=== PATIENT | male | born 1965 | race Asian ===

== ENCOUNTER 2016-04-16 10:08 | Emergency (ER) | payer MEDICAID ==
[~2016-04-16] VITALS: Ht 177.8 cm; Wt 81.2 kg
[2016-04-16 10:54] VITALS: BP 108/62
== END 2016-04-16 11:35 | disposition home or self-care (01) ==
LOC: ER 10:08
DX: S20.30 Unspecified superficial injuries of front wall of thorax (principal); F17.210 Nicotine dependence, cigarettes, uncomplicated; F12.10 Cannabis abuse, uncomplicated; Z48.02 Encounter for removal of sutures

== ENCOUNTER 2016-05-02 12:39 | Emergency (ER) | payer MEDICAID ==
[~2016-05-02] VITALS: Ht 170.2 cm; Wt 68.0 kg
[2016-05-02 12:41] VITALS: BP 132/78
== END 2016-05-02 19:30 | disposition home or self-care (01) ==
LOC: EDBD 12:39 → ER 12:53
DX: R07.89 Other chest pain (principal); F17.210 Nicotine dependence, cigarettes, uncomplicated; F12.10 Cannabis abuse, uncomplicated

== ENCOUNTER 2017-04-06 13:04 | Emergency (ER) | payer MEDICAID ==
[~2017-04-06] VITALS: Ht 175.3 cm; Wt 79.4 kg
[2017-04-06 14:46] VITALS: BP 126/91
[2017-04-06 15:31] LABS: Basophils # (auto) 0 uL; Eosinophils # (auto) 0.1 uL; Lymphocytes # (auto) 1.6 uL; Mean Corpuscular Hemoglobin 34.5 pg (28.0-32.0); Monocytes # (auto) 0.4 uL; Nucleated Red Blood Cells % 0.2 %
[2017-04-06 15:33] LABS: Basophils % (auto) 0.4 % (0.0-2.0); Eosinophils % (auto) 1.6 % (0.0-7.0); Hematocrit 46.2 % (41.0-53.0); Hemoglobin 15.8 g/dL (13.5-17.5); Lymphocytes % (auto) 23.5 % (10.0-50.0); Mean Corpuscular Hgb Conc. 34.2 g/dL (32.0-36.0); Mean Corpuscular Volume 100.8 fL (80.0-100.0); Monocytes % (auto) 6.2 % (0.0-12.0); Neutrophils # (auto) 4.5 uL; Neutrophils % (auto) 68.3 % (37.0-80.0); Platelet Count (auto) 277 10^3/uL (140-450); Red Blood Cells 4.58 10^6/uL (4.5-5.90); Red Cell Distribution Width 13.7 % (11.8-14.3); White Blood Cell 6.6 10^3/uL (4.4-10.8)
== END 2017-04-06 15:56 | disposition home or self-care (01) ==
LOC: ER 13:04
DX: R04.0 Epistaxis (principal); K64.9 Unspecified hemorrhoids; F17.210 Nicotine dependence, cigarettes, uncomplicated
CPT/HCPCS: 36415; 85025

== ENCOUNTER 2021-04-10 17:29 | Emergency (ER) | payer MEDICAID ==
[~2021-04-10] VITALS: Ht 177.8 cm; Wt 77.1 kg
[2021-04-11 00:54] VITALS: BP 115/81
[2021-04-11] MEDS ORDERED: TETANUS-DIPTH-ACEL PERTUSSIS 0.5ML SYR Tdap IM ONE (02:00)
[2021-04-11] MEDS ORDERED: cefTRIAXone SOD 1,000 MG VL IM ONE (02:00)
== END 2021-04-11 02:23 | disposition home or self-care (01) ==
LOC: ER 17:29
DX: L03.211 Cellulitis of face (principal); F15.10 Other stimulant abuse, uncomplicated; E78.5 Hyperlipidemia, unspecified; F17.210 Nicotine dependence, cigarettes, uncomplicated
CPT/HCPCS: 90471; 90715; 96372; 99284; J0696

== ENCOUNTER 2021-08-03 18:12 | Inpatient (IN) | payer MEDICAID ==
[~2021-08-03] VITALS: Ht 177.8 cm; Wt 67.9 kg
[2021-08-03 21:20] LABS: Eosinophils # (auto) 0 10 ^3/uL (0-0.8); Hemoglobin 19.5 g/dL (13.5-17.5)
[2021-08-03 21:22] LABS: Basophils # (auto) 0.1 10 ^3/uL (0-0.2); Basophils % (auto) 0.2 % (0.0-2.0); Hematocrit 56.9 % (41.0-53.0); Lymphocytes # (auto) 1.7 10 ^3/uL (0.4-5.4); Lymphocytes % (auto) 7.4 % (10.0-50.0); Mean Corpuscular Hgb Conc. 34.2 g/dL (32.0-36.0); Mean Corpuscular Volume 99.3 fL (80.0-100.0); Monocytes % (auto) 4.4 % (0.0-12.0); Neutrophils # (auto) 20.5 10 ^3/uL (1.6-8.6); Nucleated Red Blood Cells % 0.9 %; Red Blood Cells 5.73 10^6/uL (4.5-5.90); Red Cell Distribution Width 14.3 % (11.8-14.3); White Blood Cell 23.3 10^3/uL (4.4-10.8)
[2021-08-03 21:34] LABS: Albumin 5.6 g/dL (3.4-5.0); Potassium 5.1 mmol/L (3.5-5.1)
[2021-08-03 21:37] LABS: BUN/Creatinine Ratio 7.7; Bilirubin, Total 0.6 mg/dL (0.2-1.0); Total Protein 10.4 g/dL (6.4-8.2)
[2021-08-03 22:07] LABS: Calcium 13.1 mg/dL (8.5-10.1)
[2021-08-03] MEDS ORDERED: ONDANSETRON HCL 4 MG/2 ML VIAL IV ONE (22:45)
[2021-08-03] MEDS ORDERED: SODIUM CHLORIDE 0.9% 1,000 ML IV ONE ×2 (22:45)
[2021-08-03] MEDS ORDERED: HALOPERIDOL LACTATE 5 MG/ML INJ VIAL IM ONE (22:45)
[2021-08-04] MEDS ORDERED: ONDANSETRON HCL 4 MG/2 ML VIAL IV PRN (02:45)
[2021-08-04] MEDS ORDERED: LORazepam 2MG/ML-1ML VIAL IV PRN (02:45)
[2021-08-04] MEDS: SODIUM CHLORIDE 0.9% 1,000 ML IV SCH ×4 (03:15→17:58)
[2021-08-04] MEDS ORDERED: cefTRIAXone 1GM/50ML D5W 50 ML IV ONE (03:30)
[2021-08-04 03:33] LABS: Alcohol, Urine < 3.0 mg/dL (0-10); Amphetamine Screen, Urine NEGATIVE (NEGATIVE); Barbiturate Scree,Urine NEGATIVE (NEGATIVE); Benzodiazephine Screen, Urine POSITIVE (NEGATIVE); Cannabinoid Screen, Urine POSITIVE (NEGATIVE); Cocaine Screen, Urine NEGATIVE (NEGATIVE); Opiate Scree,Urine NEGATIVE (NEGATIVE); Phencyclidine Screen, Urine NEGATIVE (NEGATIVE)
[2021-08-04 03:33] LABS: Magnesium 3.8 mg/dL (1.6-2.6)
[2021-08-04] MEDS ORDERED: LURA80TA PO (03:49)
[2021-08-04 04:04] LABS: Urine Bacteria FEW /hpf (None Seen); Urine Blood 3+ /uL (Negative); Urine Budding Yeast OCCASIONAL /hpf (None Seen); Urine Hyaline Cast MANY /lpf (0 - 2); Urine Mucus MODERATE (None Seen); Urine Specific Gravity 1.022 (1.001-1.035); Urine WBC 18 /hpf (0 - 3)
[2021-08-04] MEDS: metroNIDAZOLE 500MG/100ML 100 ML IV SCH ×3 (05:58→22:37)
[2021-08-04] MEDS ORDERED: IBUPROFEN 800 MG TAB PO PRN (07:45)
[2021-08-04 10:14] LABS: Hematocrit 48.9 % (41.0-53.0); Red Blood Cells 4.91 10^6/uL (4.5-5.90)
[2021-08-04 10:16] LABS: Hemoglobin 16.9 g/dL (13.5-17.5); Mean Corpuscular Hemoglobin 34.3 pg (28.0-32.0); Mean Corpuscular Hgb Conc. 34.5 g/dL (32.0-36.0); Mean Corpuscular Volume 99.6 fL (80.0-100.0); Red Cell Distribution Width 14.4 % (11.8-14.3); White Blood Cell 24.2 10^3/uL (4.4-10.8)
[2021-08-04 10:22] LABS: BUN/Creatinine Ratio 13.4; Calcium 9.3 mg/dL (8.5-10.1); Potassium 4.6 mmol/L (3.5-5.1)
[2021-08-04] MEDS: NICOTINE 14 MG/24HR TOPICAL PATCH TD SCH (10:33)
[2021-08-04] MEDS: PANTOPRAZOLE 40 MG/10 ML VIAL INJ IV SCH (10:36)
[2021-08-04 10:51] LABS: Basophils % (manual) 0 (0.0-2.0); Blast Cells 0; Eosinophils % (manual) 0 (0-7); Metamyelocytes % 0; Myelocytes % 0; Promyelocytes % 0; Reactive Lymphocytes 0
[2021-08-04 11:02] LABS: Band Neutrophils % (manual) 29; Lymphocytes % (manual) 5 (10.0-50.0); Monocytes % (manual) 9 (0-12)
[2021-08-04 18:09] LABS: BUN/Creatinine Ratio 21.6; Calcium 8.4 mg/dL (8.5-10.1); Potassium 4.2 mmol/L (3.5-5.1)
[2021-08-04 20:10] VITALS: BP 112/73
[2021-08-04 20:15] VITALS: BP 112/73
[2021-08-04 21:03] VITALS: BP 112/73
[2021-08-05] MEDS: SODIUM CHLORIDE 0.9% 1,000 ML IV SCH ×3 (03:00→13:26)
[2021-08-05 05:11] VITALS: BP 110/64
[2021-08-05] MEDS: metroNIDAZOLE 500MG/100ML 100 ML IV SCH ×2 (05:52→13:28)
[2021-08-05 06:50] LABS: Basophils # (auto) 0 10 ^3/uL (0-0.2); Basophils % (auto) 0.1 % (0.0-2.0); Eosinophils # (auto) 0 10 ^3/uL (0-0.8); Hematocrit 42.2 % (41.0-53.0); Hemoglobin 14.5 g/dL (13.5-17.5); Lymphocytes # (auto) 1.4 10 ^3/uL (0.4-5.4); Lymphocytes % (auto) 12.1 % (10.0-50.0); Mean Corpuscular Hgb Conc. 34.4 g/dL (32.0-36.0); Mean Corpuscular Volume 98.7 fL (80.0-100.0); Monocytes % (auto) 8.3 % (0.0-12.0); Neutrophils # (auto) 9.2 10 ^3/uL (1.6-8.6); Neutrophils % (auto) 79.5 % (37.0-80.0); Red Blood Cells 4.28 10^6/uL (4.5-5.90); Red Cell Distribution Width 13.9 % (11.8-14.3); White Blood Cell 11.6 10^3/uL (4.4-10.8)
[2021-08-05 07:04] LABS: BUN/Creatinine Ratio 33.1; Calcium 8.7 mg/dL (8.5-10.1); Potassium 4.2 mmol/L (3.5-5.1)
[2021-08-05] MEDS: NICOTINE 14 MG/24HR TOPICAL PATCH TD SCH (08:37)
[2021-08-05] MEDS: PANTOPRAZOLE 40 MG/10 ML VIAL INJ IV SCH (08:38)
[2021-08-05 09:00] VITALS: BP 104/61
[2021-08-05] MEDS ORDERED: cefTRIAXone 1GM/50ML D5W 50 ML IV SCH (09:00)
[2021-08-05 13:00] VITALS: BP 145/80
[2021-08-05] MEDS ORDERED: CEPH-509 PO (17:24)
== END 2021-08-05 18:48 | disposition home health service (06) | DRG 422 ==
LOC: ER 18:12 → EDBD 18:12 → TELE 08-04 02:49 → TELE-WESTW 08-04 20:10
PROVIDERS: ADMIT Registered Nurse; ATTEND Internal Medicine
DX: E86.0 Dehydration (principal); N17.0 Acute kidney failure with tubular necrosis; E87.8 Other disorders of electrolyte and fluid balance, not elsewhere classified; K76.0 Fatty (change of) liver, not elsewhere classified; E78.5 Hyperlipidemia, unspecified; E83.52 Hypercalcemia; N18.9 Chronic kidney disease, unspecified; F32.A Depression, unspecified; F41.9 Anxiety disorder, unspecified; F12.20 Cannabis dependence, uncomplicated; F17.210 Nicotine dependence, cigarettes, uncomplicated; I12.9 Hypertensive chronic kidney disease with stage 1 through stage 4 chronic kidney disease, or unspecified chronic kidney disease; Z20.822 Contact with and (suspected) exposure to COVID-19; N39.0 Urinary tract infection, site not specified
CPT/HCPCS: 36415; 71045; 74176; 76775; 80048; 80053; 80061; 80307; 81001; 83036; 83690; 83735; 85007; 85025; 85027; 87040; 87086; 87088; 87186; 87205; 96361; 96372; 96374; C9113; G0378; J0696; J2405; J3490

== ENCOUNTER 2022-02-27 19:34 | Emergency (ER) | payer MEDICAID ==
[~2022-02-27] VITALS: Ht 177.8 cm; Wt 79.0 kg
[~2022-02-27 19:34] MED LIST: CEPH-509 PO; LURA80TA PO
[2022-02-27] MEDS ORDERED: HYDROmorphone HCL 2 MG/ML VL/or syr IV ONE (20:00)
[2022-02-27 20:27] LABS: Basophils # (auto) 0 10 ^3/uL (0-0.2); Eosinophils # (auto) 0.1 10 ^3/uL (0-0.8); Lymphocytes # (auto) 1.2 10 ^3/uL (0.4-5.4); Mean Corpuscular Hgb Conc. 34.1 g/dL (32.0-36.0); Monocytes # (auto) 0.5 10 ^3/uL (0-1.3); Red Cell Distribution Width 14.1 % (11.8-14.3)
[2022-02-27 20:28] LABS: Basophils % (auto) 0.2 % (0.0-2.0); Eosinophils % (auto) 0.7 % (0.0-7.0); Hematocrit 41.7 % (41.0-53.0); Hemoglobin 14.2 g/dL (13.5-17.5); Lymphocytes % (auto) 12.4 % (10.0-50.0); Mean Corpuscular Hemoglobin 34.5 pg (28.0-32.0); Mean Corpuscular Volume 101.1 fL (80.0-100.0); Monocytes % (auto) 5.1 % (0.0-12.0); Neutrophils % (auto) 81.6 % (37.0-80.0); Red Blood Cells 4.13 10^6/uL (4.5-5.90); White Blood Cell 9.8 10^3/uL (4.4-10.8)
[2022-02-27 20:48] LABS: Alanine Aminotransferase 25 U/L (16-61); Albumin 3.8 g/dL (3.4-5.0); Anion Gap 5 (5-15); Aspartate Aminotransferase 20 U/L (15-37); BUN/Creatinine Ratio 16.1; Blood Urea Nitrogen 18 mg/dL (7-18); Carbon Dioxide 27 mmol/L (21-32); Chloride 113 mmol/L (98-107); GFR African American 87 mL/min; GFR Non-African American 72 mL/min; Glucose 105 mg/dL (74-106); Potassium 4.4 mmol/L (3.5-5.1); Sodium 145 mmol/L (136-145)
[2022-02-27 20:50] LABS: Alkaline Phosphatase 82 U/L (45-117); Bilirubin, Total 0.3 mg/dL (0.2-1.0); Total Protein 7.3 g/dL (6.4-8.2)
[2022-02-27 22:58] VITALS: BP 111/75
[2022-02-27] MEDS ORDERED: IOHEXOL 350 MG/ML 100ML IJ ONE (23:46)
== END 2022-02-28 00:04 | disposition home or self-care (01) ==
LOC: ER 19:34 → EDBD 19:34 → EDUNIT# 19:34 → ER 23:57
DX: S29.9XXA Unspecified injury of thorax, initial encounter (principal); I10 Essential (primary) hypertension; F17.210 Nicotine dependence, cigarettes, uncomplicated; Z79.899 Other long term (current) drug therapy; V43.52XA Car driver injured in collision with other type car in traffic accident, initial encounter; Y93.89 Activity, other specified; Y92.410 Unspecified street and highway as the place of occurrence of the external cause; Y99.8 Other external cause status
CPT/HCPCS: 36415; 70450; 71260; 72125; 74177; 80053; 80320; 84484; 85025; 93005; 96374; 99285; J1170; Q9967